=== PATIENT | female | born 1950 | race Asian ===

== ENCOUNTER 2019-08-26 10:16 | Outpatient (CLI) | payer MEDICARE, OTHER | END 2019-08-26 10:17 | disposition home or self-care (01) | LOC: LAB.S 10:16 | PROVIDERS: ATTEND Surgery | DX: C50.211 Malignant neoplasm of upper-inner quadrant of right female breast (principal); Z17.0 Estrogen receptor positive status [ER+]; Z20.828 Contact with and (suspected) exposure to other viral communicable diseases ==

== ENCOUNTER 2022-07-11 10:45 | Outpatient (CLI) | payer MEDICARE, OTHER ==
[2022-07-11 11:53] LABS: CHOL/HDL RATIO 3.7 (<4.4); CHOLESTEROL 290 mg/dL; HDL CHOLESTEROL 78 mg/dL; LDL CHOLESTEROL,CALCULATED 191 mg/dL; LDL/HDL RATIO 2.4 (<4.4); TRIGLYCERIDES 104 mg/dL; VLDL CHOLESTEROL 21 mg/dL
== END 2022-07-11 10:46 | disposition home or self-care (01) ==
LOC: LAB 10:45
PROVIDERS: ATTEND Family Medicine
DX: E78.00 Pure hypercholesterolemia, unspecified (principal)
CPT/HCPCS: 36415; 80061; 83721